=== PATIENT | male | born 1985 | race Caucasian/White ===

== ENCOUNTER 2019-02-22 12:40 | Emergency (ER) | payer SELFPAY ==
[2019-02-22] MEDS ORDERED: NA CHLORIDE 0.9% 1,000 ML ONE (13:08)
[2019-02-22] MEDS ORDERED: ONDANSETRON 4 MG/2 ML VIAL ONE (13:08)
[2019-02-22 13:16] LABS: Absolute Lymphocytes (CBC) 1.2 K/uL (0.7-4.9); Absolute Monocytes 0.3 K/uL (0.1-1.3); Absolute Neutrophil 7.6 K/uL (1.8-8.0); Basophils % 0.4 % (0-1.3); Eosinophils % 0.5 % (0-4.4); Hematocrit 45.1 % (39.6-49.0); MPV 8.3 fL (7.6-11.3); Monocytes % 3.6 % (3.3-12.3); RBC Red Blood Cell Count 5.05 M/uL (4.33-5.43)
[2019-02-22 13:38] LABS: ALT/SGPT 31 U/L (12-78); AST/SGOT 17 U/L (15-37); Albumin 4.2 g/dL (3.4-5.0); Alkaline Phosphatase 77 U/L (45-117); BUN Blood Urea Nitrogen 17 mg/dL (7-18); Bicarbonate 25 mmol/L (21-32); Bilirubin Direct 0.1 mg/dL (0-0.2); Bilirubin Total 0.4 mg/dL (0.2-1.0); Glucose Level 145 mg/dL (74-106); Lipase 63 U/L (73-393); Protein, Total 7.7 g/dL (6.4-8.2); Sodium Level 141 mmol/L (136-145)
--- NOTE | 2019-02-22 15:04 | EDPHYS ---
Physician Documentation [facility] Name: Bonifacio Li Age: 33 yrs Sex: Male : 1985 Arrival Date: 02/22/2019 Time: 12:42 Bed 5 Private MD: ED Physician Neil Vega HPI: 02/22 12:54 This 33 yrs old Male presents to ER via Ambulatory with complaints of rn Abdominal Pain, Vomiting. 12:54 The patient presents to the emergency department with nausea, vomiting, diarrhea. rn 12:55 Onset: The symptoms/episode began/occurred this morning. Possible causes: unknown. The rn symptoms are aggravated by nothing. The symptoms are alleviated by nothing. Severity of symptoms: At their worst the symptoms were moderate in the emergency department the symptoms are unchanged. The patient has not experienced similar symptoms in the past. The patient has not recently seen a physician. REports nausea/vomiting/diarrhea, began this morning, no fever, + chills, no blood in emesis, reports not able to tolerate any food and is feeling dehydrated. No focal abd pain. . Historical: - Allergies: 12:48 No Known Allergies; ss - Home Meds: 12:48 None [Active]; ss - PMHx: 12:48 None; ss - PSHx: 12:48 None; ss - Immunization history:: Adult Immunizations up to date. - Social history:: Smoking status: Patient uses tobacco products, chewing tobacco. - Ebola Screening: : Patient denies exposure to infectious person Patient denies travel to an Ebola-affected area in the 21 days before illness onset. - Family history:: not pertinent. - Hospitalizations: : No recent hospitalization is reported. ROS: 12:55 Constitutional: Negative for fever, chills, and weight loss, Eyes: Negative for injury, rn pain, redness, and discharge, Neck: Negative for injury, pain, and swelling, Cardiovascular: Negative for chest pain, palpitations, and edema, Respiratory: Negative for shortness of breath, cough, wheezing, and pleuritic chest pain, Abdomen/GI: + nausea/vomiting MS/Extremity: Negative for injury and deformity, Skin: Negative for injury, rash, and discoloration, Neuro: Negative for headache, numbness, tingling, and seizure. Exam: 12:55 Constitutional: This is a well developed, well nourished patient who is awake, alert, rn wretching Head/Face: Normocephalic, atraumatic. Eyes: Pupils equal round and reactive to light, extra-ocular motions intact. Lids and lashes normal. Conjunctiva and sclera are non-icteric and not injected. Cornea within normal limits. Periorbital areas with no swelling, redness, or edema. ENT: dry MM Respiratory: No increased work of breathing, no retractions or nasal flaring. Abdomen/GI: soft, non-tender Skin: Warm, dry MS/ Extremity: Pulses equal, no cyanosis. Neurovascular intact. Full, normal range of motion. Equal circumference. Neuro: Awake and alert, GCS 15, oriented to person, place, time, and situation. Cranial nerves II-XII grossly intact. Motor strength 5/5 in all extremities. Sensory grossly intact. Cerebellar exam normal. Normal gait. Vital Signs: 12:48 BP 153 / 92; Pulse 92; Resp 18; Temp 96.5(TE); Pulse Ox 98% on R/A; Weight 102.06 kg; ss Height 6 ft. 0 in. (182.88 cm); Pain 3/10; 14:01 BP 124 / 73 RA Supine (auto/reg); Pulse 68 MON; Resp 14 S; Pulse Ox 99% on R/A; ds4 12:48 Body Mass Index 30.52 (102.06 kg, 182.88 cm) ss MDM: 12:49 Patient medically screened. rn 15:01 Differential diagnosis: Nonspecific abd pain, viral gastroenteritis, gastroenteritis. rn Data reviewed: vital signs, nurses notes, lab test result(s), and as a result, I will discharge patient. Counseling: I had a detailed discussion with the patient and/or guardian regarding: the historical points, exam findings, and any diagnostic results supporting the discharge/admit diagnosis, lab results, the need for outpatient follow up, to return to the emergency department if symptoms worsen or persist or if there are any questions or concerns that arise at home. Response to treatment: the patient's symptoms have markedly improved after treatment, patient is well hydrated. and as a result, I will discharge patient. Special discussion: I discussed with the patient/guardian in detail that at this point there is no indication for admission to the hospital. It is understood, however, that if the symptoms persist or worsen the patient needs to return immediately for re-evaluation. ED course: Reports nausea is gone, mild abd cramping but no pain, asking for ice and wants to go home. Will dc home with zofran prn and return precautions. . 02/22 12:54 Order name: Basic Metabolic Panel; Complete Time: 13:52 rn 02/22 12:54 Order name: CBC with Diff; Complete Time: 13:52 rn 02/22 12:54 Order name: Hepatic Function; Complete Time: 13:52 rn 02/22 12:54 Order name: Lipase; Complete Time: 13:52 rn 02/22 12:54 Order name: Flu; Complete Time: 13:52 rn 02/22 12:54 Order name: IV Saline Lock; Complete Time: 13:12 rn 02/22 12:54 Order name: Labs collected and sent; Complete Time: 13:12 rn Administered Medications: 13:11 Drug: NS 0.9% 1000 ml Route: IV; Rate: 1000 ml; Site: left wrist; sv 15:00 Follow up: IV Status: Completed infusion iw 13:11 Drug: Zofran 4 mg Route: IVP; Site: left wrist; sv 15:28 Follow up: Response: No adverse reaction; Nausea is decreased iw Disposition: 02/22/19 15:03 Discharged to Home. Impression: Vomiting, Diarrhea, unspecified, Viral Gastroenteritis. - Condition is Stable. - Discharge Instructions: Diarrhea, Adult, Nausea and Vomiting, Adult, Viral Gastroenteritis, Adult. - Prescriptions for Zofran ODT 4 mg Oral tablet,disintegrating - place 1 tablet by TRANSLINGUAL route every 8 hours As needed; 20 tablet. - Work release form, Medication Reconciliation Form, Thank You Letter, Antibiotic Education, Prescription Opioid Use form. - Follow up: Private Physician; When: As needed; Reason: Recheck today's complaints, Re-evaluation by your physician. - Problem is new. - Symptoms have improved. Signatures: Dispatcher [employer] Leny Guevara RN RN sv Williams, Irene, RN RN iw Nieto, Roman, MD MD rn Smirch, Shelby, RN RN ss Corrections: (The following items were deleted from the chart) 15:28 15:03 02/22/2019 15:03 Discharged to Home. Impression: Vomiting; Diarrhea, unspecified; iw Viral Gastroenteritis. Condition is Stable. Forms are Medication Reconciliation Form, Thank You Letter, Antibiotic Education, Prescription Opioid Use. Follow up: Private Physician; When: As needed; Reason: Recheck today's complaints, Re-evaluation by your physician. Problem is new. Symptoms have improved. rn
--- NOTE | 2019-02-22 15:04 | ER ---
Nurse's Notes [facility] Name: Bonifacio Li Age: 33 yrs Sex: Male : 1985 Arrival Date: 02/22/2019 Time: 12:42 Bed 5 Private MD: Diagnosis: Vomiting;Diarrhea, unspecified;Viral Gastroenteritis Presentation: 02/22 12:47 Presenting complaint: Patient states: N/V that began this morning with mild abd ss discomfort. Transition of care: patient was not received from another setting of care. Onset of symptoms was February 22, 2019. Risk Assessment: Do you want to hurt yourself or someone else? Patient reports no desire to harm self or others. Initial Sepsis Screen: Does the patient meet any 2 criteria? No. Patient's initial sepsis screen is negative. Does the patient have a suspected source of infection? No. Patient's initial sepsis screen is negative. Care prior to arrival: None. 12:47 Method Of Arrival: Ambulatory ss 12:47 Acuity: [place] 3 ss Historical: - Allergies: 12:48 No Known Allergies; ss - Home Meds: 12:48 None [Active]; ss - PMHx: 12:48 None; ss - PSHx: 12:48 None; ss - Immunization history:: Adult Immunizations up to date. - Social history:: Smoking status: Patient uses tobacco products, chewing tobacco. - Ebola Screening: : Patient denies exposure to infectious person Patient denies travel to an Ebola-affected area in the 21 days before illness onset. - Family history:: not pertinent. - Hospitalizations: : No recent hospitalization is reported. Screenin:52 Abuse screen: Denies threats or abuse. Denies injuries from another. Nutritional sv screening: No deficits noted. Tuberculosis screening: No symptoms or risk factors identified. Fall Risk None identified. Assessment: 12:53 General: Appears in no apparent distress. uncomfortable, unkempt, well developed, sv Behavior is calm, cooperative, appropriate for age. Pain: Complains of pain in abdomen Pain currently is 3 out of 10 on a pain scale. Quality of pain is described as crampy, Is intermittent. Neuro: Level of Consciousness is awake, alert, obeys commands, Oriented to person, place, time, situation, Moves all extremities. Full function Gait is steady, Speech is normal. Respiratory: Respiratory effort is even, unlabored, Respiratory pattern is regular, symmetrical. GI: Abdomen is round Abd is soft and non tender X 4 quads. Reports diarrhea, nausea, vomiting. Derm: Skin is pale. 15:28 GI: Bowel sounds present X 4 quads. iw Vital Signs: 12:48 BP 153 / 92; Pulse 92; Resp 18; Temp 96.5(TE); Pulse Ox 98% on R/A; Weight 102.06 kg; ss Height 6 ft. 0 in. (182.88 cm); Pain 3/10; 14:01 BP 124 / 73 RA Supine (auto/reg); Pulse 68 MON; Resp 14 S; Pulse Ox 99% on R/A; ds4 12:48 Body Mass Index 30.52 (102.06 kg, 182.88 cm) ED Course: 12:42 Patient arrived in ED. mr 12:48 Triage completed. ss 12:48 Arm band placed on right wrist. ss 12:49 Neil Vega MD is Attending Physician. rn 12:52 Leny Hyman RN is Primary Nurse. sv 12:52 Patient has correct armband on for positive identification. Bed in low position. Call sv light in reach. Door closed. 13:05 Initial lab(s) drawn, by me, sent to lab. Flu and/or RSV swab sent to lab. Inserted sv saline lock: 20 gauge in left wrist, using aseptic technique. Blood collected. Flushed left with 5 ml normal saline wrist. 15:28 No provider procedures requiring assistance completed. IV discontinued, intact, iw bleeding controlled, No redness/swelling at site. Pressure dressing applied. Administered Medications: 13:11 Drug: NS 0.9% 1000 ml Route: IV; Rate: 1000 ml; Site: left wrist; sv 15:00 Follow up: IV Status: Completed infusion iw 13:11 Drug: Zofran 4 mg Route: IVP; Site: left wrist; sv 15:28 Follow up: Response: No adverse reaction; Nausea is decreased iw Outcome: 15:03 Discharge ordered by MD. rn 15:28 Discharged to home ambulatory, with family. iw 15:28 Condition: good 15:28 Discharge instructions given to patient, family, Instructed on discharge instructions, follow up and referral plans. medication usage, Demonstrated understanding of instructions, follow-up care, medications, Prescriptions given X 1. 15:28 Patient left the ED. iw Signatures: Leny Hyman, DAVID HERNANDEZ Moses, [facility] mr Kait Lara, Neil Bustillo RN, MD MD rn Smirch, Shelby, RN RN ss Swanson, Donovan ds4
[2019-02-22 15:35] VITALS: TEMP 96.5
[2019-02-22 15:36] VITALS: BP 124/73; O2SAT 99
== END 2019-02-22 15:28 | disposition home or self-care (01) ==
LOC: ER 12:40
DX: A08.4 Viral intestinal infection, unspecified (principal); R19.7 Diarrhea, unspecified; Z72.0 Tobacco use
CPT/HCPCS: 36415; 80048; 80076; 83690; 85025; 87804; 96361; 96374; 99284; J2405; J7030

== ENCOUNTER 2021-01-27 14:17 | Emergency (ER) | payer OTHER, SELFPAY ==
--- NOTE | 2021-01-27 16:45 | EDPHYS ---
Physician Documentation [facility] Name: Bonifacio Li Age: 35 yrs Sex: Male : 1985 Arrival Date: 01/27/2021 Time: 14:22 Bed 6 Private MD: ED Physician Naren Humphries HPI: 01/27 15:58 This 35 yrs old Male presents to ER via Ambulatory with complaints of Dog jmm Bite. 15:58 The patient was bitten on the face and left hand. Onset: The symptoms/episode jmm began/occurred acutely, just prior to arrival. This is a 35 year old male with no chronic medical conditions that presents to the ED with complaints of multiple bites secondary to breaking up a dog fight. Patient states he is UTD on tetanus immunizations. . Historical: - Allergies: 14:32 No Known Allergies; ll1 - PMHx: 14:32 None; ll1 - PSHx: 14:32 ear sx, arm sx; ll1 - Immunization history:: Last tetanus immunization: up to date Flu vaccine is not up to date. - Social history:: Smoking status: Patient reports use of chewing tobacco. Patient denies any tobacco usage or history of. ROS: 15:58 Constitutional: Negative for fever, chills, and weight loss, Cardiovascular: Negative jmm for chest pain, palpitations, and edema, Respiratory: Negative for shortness of breath, cough, wheezing, and pleuritic chest pain. 15:58 Skin: Positive for laceration(s). 15:58 All other systems are negative. Exam: 15:58 Constitutional: This is a well developed, well nourished patient who is awake, alert, jmm and in no acute distress. Head/Face: atraumatic. Eyes: EOMI, no conjunctival erythema appreciated ENT: Moist Mucus Membranes Neck: Trachea midline, Supple Chest/axilla: Normal chest wall appearance and motion. Cardiovascular: Regular rate and rhythm. No edema appreciated Respiratory: Normal respirations, no respiratory distress appreciated Abdomen/GI: Non distended, soft Back: Normal ROM 15:58 Skin: 2 cm superficial laceration noted to the forehead, small lacerations noted to the 3rd finger. . 15:58 Neuro: Orientation: is normal, Mentation: is normal, Memory: is normal. 15:58 Psych: Behavior/mood is pleasant, cooperative. Vital Signs: 14:29 BP 142 / 88; Pulse 89; Resp 17; Temp 98.8; Pulse Ox 98% ; Weight 86.18 kg; Height 6 ft. ll1 (182.88 cm); Pain 0/10; 14:29 Body Mass Index 25.77 (86.18 kg, 182.88 cm) ll1 MDM: 16:07 Data reviewed: vital signs, nurses notes. [facility] 16:11 Patient medically screened. [facility] 16:43 Counseling: I had a detailed discussion with the patient and/or guardian regarding: the [facility] historical points, exam findings, and any diagnostic results supporting the discharge/admit diagnosis, the need for outpatient follow up, to return to the emergency department if symptoms worsen or persist or if there are any questions or concerns that arise at home. 01/27 16:08 Order name: Wound Care: cleans wounds with hibiclenz; Complete Time: 16:52 [facility] Administered Medications: No medications were administered Disposition: 17:45 Co-signature as Attending Physician, Naren Humphries MD I agree with the assessment and [facility] plan of care. Disposition: 01/27/21 16:44 Discharged to Home. Impression: Dog Bite. - Condition is Stable. - Discharge Instructions: Animal Bite. - Prescriptions for Augmentin 875- 125 mg Oral Tablet - take 1 tablet by ORAL route every 12 hours for 10 days; 20 tablet. - Medication Reconciliation Form, Thank You Letter, Antibiotic Education, Prescription Opioid Use form. - Follow up: Private Physician; When: 2 - 3 days; Reason: Recheck today's complaints, Continuance of care, Re-evaluation by your physician. Signatures: Dave Diaz PA PA jmm Smirch, Shelby, RN RN Naren Gomez MD MD tw4 Doc Bonilla RN RN ll1 Corrections: (The following items were deleted from the chart) 17:02 16:44 01/27/2021 16:44 Discharged to Home. Impression: Dog Bite. Condition is Stable. ss Forms are Medication Reconciliation Form, Thank You Letter, Antibiotic Education, Prescription Opioid Use. Follow up: Private Physician; When: 2 - 3 days; Reason: Recheck today's complaints, Continuance of care, Re-evaluation by your physician. radha
--- NOTE | 2021-01-27 16:45 | ER ---
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 Laceration to ll1 R face area (above R eyebrow) <3 cm laceration. Puncture wounds to L hand 2nd and 4th digits. 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 Coronavirus screen: Client denies travel out of the [place] in the last 14 days. At this time, the client does not indicate any symptoms associated with coronavirus-19. Ebola Screen: Patient denies travel to an Ebola-affected area in the 21 days before illness onset. Initial Sepsis Screen: Does the patient meet any 2 criteria? No. Patient's initial sepsis screen is negative. Does the patient have a suspected source of infection? Yes: Skin breakdown/wound. Risk Assessment: Do you want to hurt yourself or someone else? Patient reports no desire to harm self or others. Onset of symptoms was January 27, 2021. 14:29 Method Of Arrival: Ambulatory 1 14:29 Acuity: [place] 4 ll1 Historical: - Allergies: 14:32 No Known Allergies; ll1 - PMHx: 14:32 None; ll1 - PSHx: 14:32 ear sx, arm sx; ll1 - Immunization history:: Last tetanus immunization: up to date Flu vaccine is not up to date. - Social history:: Smoking status: Patient reports use of chewing tobacco. Patient denies any tobacco usage or history of. Screenin:50 Abuse screen: Denies threats or abuse. Denies injuries from another. Nutritional ph screening: No deficits noted. Tuberculosis screening: No symptoms or risk factors identified. Assessment: 16:30 General: Appears in no apparent distress. comfortable, Behavior is calm, cooperative, ph appropriate for age. Pain: Denies pain. Neuro: Level of Consciousness is awake, alert, obeys commands, Oriented to person, place, time, situation. Derm: Skin is healthy with good turgor, Skin is pink, warm \T\ dry. Musculoskeletal: Circulation, motion, and sensation intact. Range of motion: intact in all extremities. Injury Description: Laceration sustained to right side of forehead is superficial, 0.5 to 2.5 cm long, not bleeding. Injury Description: Laceration sustained to left hand, second and fourth digits is superficial, not bleeding. Vital Signs: 14:29 BP 142 / 88; Pulse 89; Resp 17; Temp 98.8; Pulse Ox 98% ; Weight 86.18 kg; Height 6 ft. ll1 (182.88 cm); Pain 0/10; 14:29 Body Mass Index 25.77 (86.18 kg, 182.88 cm) ll1 ED Course: 14:22 Patient arrived in ED. mr 14:31 Triage completed. ll1 14:32 Arm band placed on. ll1 15:13 Dave Diaz PA is PHCP. radha 15:13 Naren Humphries MD is Attending Physician. mani 15:49 Lisa Baker, RN is Primary Nurse. ph 15:50 Patient has correct armband on for positive identification. Placed in gown. Bed in low ph position. Call light in reach. Pulse ox on. NIBP on. Door closed. Noise minimized. Warm blanket given. 16:45 Wound care: to laceration located on left hand and right side of forehead was cleaned ph with Hibiclens, Patient tolerated well. 16:52 No provider procedures requiring assistance completed. Patient did not have IV access ss during this emergency room visit. Administered Medications: No medications were administered Outcome: 16:44 Discharge ordered by . [facility] 16:52 Discharged to home ambulatory. 16:52 Condition: good 16:52 Discharge instructions given to patient, over the phone. Pt walked out of ED prior to receiving discharge instructions 17:02 Patient left the ED. ss Signatures: Dave Diaz PA PA jmm Shahla Moses Gertrude Kaplan RN RN ss Lsia Baker RN RN Doc Bonilla RN RN ll1 Corrections: (The following items were deleted from the chart) 19:16 16:30 Injury Description: Laceration ph ph
[2021-01-27 17:07] VITALS: BP 142/88; TEMP 98.8; O2SAT 98
== END 2021-01-27 17:02 | disposition home or self-care (01) ==
LOC: ER 14:17
DX: S00.87XA Other superficial bite of other part of head, initial encounter (principal); S60.473A Other superficial bite of left middle finger, initial encounter; W54.0XXA Bitten by dog, initial encounter; Y93.89 Activity, other specified; Y92.9 Unspecified place or not applicable; F17.220 Nicotine dependence, chewing tobacco, uncomplicated
CPT/HCPCS: 99283

== ENCOUNTER 2022-10-17 10:38 | Emergency (ER) | payer SELFPAY ==
[2022-10-17 11:30] LABS: MCV 92.3 fL (80-100); MPV 7.6 fL (7.6-11.3); RBC Red Blood Cell Count 4.66 M/uL (4.33-5.43)
[2022-10-17 11:43] LABS: Urine Blood Negative (Negative); Urine Glucose Negative (Negative); Urine Protein Negative (Negative); Urine Specific Gravity >=1.030 (1.005-1.030); Urine pH 5.5 (5.0-7.0)
[2022-10-17 11:53] LABS: Potassium 3.9 mmol/L (3.5-5.1); Troponin High Sensitivity 6.5 pg/mL (<58.9)
[2022-10-17 11:57] LABS: Barbiturates NEGATIVE (NEGATIVE); Benzodiazepines NEGATIVE (NEGATIVE); Cocaine NEGATIVE (NEGATIVE); METHAMPHETAM NEGATIVE (NEGATIVE); Methadone NEGATIVE (NEGATIVE); Opiates NEGATIVE (NEGATIVE); Phencyclidine NEGATIVE (NEGATIVE); THC Cannibis POSITIVE (NEGATIVE); Urine Mucus Slight /HPF (None Seen); Urine RBC <5 /HPF (None Seen)
--- NOTE | 2022-10-17 12:30 | RAD REPORT ---
EXAM DESCRIPTION: Emily Single View10/17/2022 12:21 pm CLINICAL HISTORY: Chest pain COMPARISON: 2016 FINDINGS: The lungs appear clear of acute infiltrate. The heart is normal size IMPRESSION: No acute abnormalities displayed
[2022-10-17 12:34] LABS: ALT/SGPT 25 U/L (12-78); AST/SGOT 17 U/L (15-37); Alkaline Phosphatase 58 U/L (45-117); Bilirubin Total 0.4 mg/dL (0.2-1.0); Creatine Phosphokinase 147 U/L (39-308)
[2022-10-17 12:35] LABS: Bilirubin Direct < 0.1 mg/dL (0-0.2)
--- NOTE | 2022-10-17 15:48 | ER ---
Nurse's Notes [facility] Name: Bonifacio Li Age: 37 yrs Sex: Male : 1985 Arrival Date: 10/17/2022 Time: 10:38 Bed 28 Private MD: Diagnosis: Chest pain, unspecified Presentation: 10/17 10:50 Chief complaint: Patient states: Woke up this morning with intermittent chest pain. ld1 Denies injury. Never had chest pain before. Coronavirus screen: At this time, the client does not indicate any symptoms associated with coronavirus-19. Ebola Screen: No symptoms or risks identified at this time. Initial Sepsis Screen: Does the patient meet any 2 criteria? No. Patient's initial sepsis screen is negative. Does the patient have a suspected source of infection? No. Patient's initial sepsis screen is negative. Risk Assessment: Do you want to hurt yourself or someone else? Patient reports no desire to harm self or others. Onset of symptoms was October 17, 2022 at 10:52. 10:50 Method Of Arrival: Ambulatory ld1 10:50 Acuity: [place] 3 ld1 Triage Assessment: 10:50 General: Appears in no apparent distress. comfortable, Behavior is calm, cooperative, ld1 appropriate for age. Pain: Complains of pain in chest Pain does not radiate. Pain currently is 6 out of 10 on a pain scale. Quality of pain is described as sharp, shooting, throbbing, Pain began suddenly, Is intermittent. EENT: No signs and/or symptoms were reported regarding the EENT system. Neuro: Level of Consciousness is awake, alert, obeys commands, Oriented to person, place, time, situation. Cardiovascular: Capillary refill < 3 seconds Patient's skin is warm and dry. Rhythm is sinus rhythm. Respiratory: Airway is patent Respiratory effort is even, unlabored. GI: Abdomen is flat, non-distended. : No signs and/or symptoms were reported regarding the genitourinary system. Derm: No signs and/or symptoms reported regarding the dermatologic system. Musculoskeletal: No signs and/or symptoms reported regarding the musculoskeletal system. Historical: - Allergies: 10:50 No Known Allergies; ld1 - Home Meds: 10:50 None [Active]; ld1 - PMHx: 10:50 None; ld1 - PSHx: 10:50 None; ld1 - Immunization history:: Adult Immunizations up to date, Client reports having NOT received the Covid vaccine. - Social history:: Smoking status: Patient denies any tobacco usage or history of. Patient/guardian denies using alcohol. Screenin:45 Abuse screen: Denies threats or abuse. Denies injuries from another. Nutritional eh3 screening: No deficits noted. Tuberculosis screening: No symptoms or risk factors identified. Fall Risk None identified. Assessment: 12:45 General: Appears in no apparent distress. comfortable, Behavior is calm, cooperative, eh3 appropriate for age. Pain: Complains of pain in mid-sternal area Pain radiates to chest Pain currently is 5 out of 10 on a pain scale. Quality of pain is described as sharp, Pain began 4 hours ago. Is intermittent, Alleviated by nothing. Neuro: Level of Consciousness is awake, alert, obeys commands, Oriented to person, place, time, situation. Cardiovascular: Rhythm is sinus rhythm. Cardiovascular: Capillary refill < 3 seconds Patient's skin is warm and dry. Respiratory: Airway is patent Respiratory effort is even, labored, Respiratory pattern is regular, symmetrical. GI: No signs and/or symptoms were reported involving the gastrointestinal system. GI: No signs and/or symptoms were reported involving the gastrointestinal system. Abdomen is round non-distended. : No signs and/or symptoms were reported regarding the genitourinary system. EENT: No signs and/or symptoms were reported regarding the EENT system. Derm: No signs and/or symptoms reported regarding the dermatologic system. Musculoskeletal: No signs and/or symptoms reported regarding the musculoskeletal system. Circulation, motion, and sensation intact. Range of motion: intact in all extremities. 13:45 Reassessment: Patient and/or family updated on plan of care and expected duration. Pain eh3 level reassessed. Patient is alert, oriented x 3, equal unlabored respirations, skin warm/dry/pink. Vital Signs: 10:50 BP 129 / 76; Pulse 77; Resp 18; Temp 98.1(TE); Pulse Ox 98% on R/A; Weight 86.18 kg; ld1 Height 5 ft. 11 in. (180.34 cm); Pain 6/10; 12:45 BP 134 / 63; Pulse 77; Resp 20; Pulse Ox 98% on R/A; eh3 13:45 BP 121 / 72; Pulse 60; Resp 17; Pulse Ox 95% on R/A; eh3 10:50 Body Mass Index 26.50 (86.18 kg, 180.34 cm) ld1 ED Course: 10:38 Patient arrived in ED. as 10:48 Mckinley Michele PA is PHCP. cp 10:48 Mckinley Perry MD is Attending Physician. cp 10:50 Arm band placed on right wrist. ld1 10:52 Triage completed. ld1 11:19 Kait Lara, RN is Primary Nurse. iw 11:19 Inserted saline lock: 20 gauge in right wrist, using aseptic technique. Blood collected.iw 11:44 UDS Sent. ld1 12:23 XRAY Chest (1 view) In Process Unspecified. EDMS 12:45 Patient has correct armband on for positive identification. Placed in gown. Bed in low eh3 position. Call light in reach. Side rails up X2. Client placed on continuous cardiac and pulse oximetry monitoring. NIBP monitoring applied. Door closed. Noise minimized. Lights dimmed. Warm blanket given. Pillow given. 16:13 No provider procedures requiring assistance completed. Patient maintains SpO2 eh3 saturation greater than 95% on room air. Administered Medications: 11:26 Drug: Ketorolac 15 mg Route: IVP; Site: left wrist; ld1 12:56 Follow up: Response: Pain is decreased eh3 11:26 Drug: Pepcid (famotidine) 20 mg Route: IVP; Site: left wrist; ld1 12:57 Follow up: Response: Pain is decreased eh3 Medication: 16:13 VIS not applicable for this client. eh3 Outcome: 15:47 Discharge ordered by . cp 16:16 Discharged to home ambulatory. eh3 16:16 Condition: stable 16:16 Discharge instructions given to patient, by ANTHONY Hollis. Pt left before signing discharge paperwork. Charge nurse notified 16:18 Patient left the ED. eh3 Signatures: Dispatcher [employer] Jeannine Sanchez as Kait Lara, RN RN iw Mckinley iMchele PA PA Savannah Delgado RN RN ld1 Amanda Baker RN RN eh3 Corrections: (The following items were deleted from the chart) 14:29 14:25 General: Appears in no apparent distress. comfortable, Behavior is calm, eh3 cooperative, appropriate for age, 3 14:25 Pain: Complains of pain in mid-sternal area Pain radiates to chest Pain currently eh3 is 5 out of 10 on a pain scale. Quality of pain is described as sharp, Pain began 4 hours ago. Is intermittent, Alleviated by nothing. 3 : 14:25 Neuro: Level of Consciousness is awake, alert, obeys commands, Oriented to 3 person, place, time, situation, [facility] : 14:25 Cardiovascular: Capillary refill < 3 seconds Patient's skin is warm and dry. 3 3 : 14:25 Respiratory: Airway is patent Respiratory effort is even, labored, Respiratory [facility] pattern is regular, symmetrical, [facility] : 14:25 Cardiovascular: Rhythm is sinus rhythm [place] [id number] 14:25 GI: No signs and/or symptoms were reported involving the gastrointestinal system. 3 Abdomen is round non-distended, [facility] 14:25 GI: No signs and/or symptoms were reported involving the gastrointestinal system. 3 3 14:25 : [place] [id number] : 14:25 EENT: No signs and/or symptoms were reported regarding the EENT system. 3 3 : 14:25 : No signs and/or symptoms were reported regarding the genitourinary system. 33 : 14:25 Derm: No signs and/or symptoms reported regarding the dermatologic system. 3 3 : 14:25 Musculoskeletal: No signs and/or symptoms reported regarding the musculoskeletal [facility] system. Circulation, motion, and sensation intact. Range of motion: intact in all extremities, [facility]
--- NOTE | 2022-10-17 15:48 | EDPHYS ---
Physician Documentation [facility] Name: Bonifacio Li Age: 37 yrs Sex: Male : 1985 Arrival Date: 10/17/2022 Time: 10:38 Bed 28 Private MD: ED Physician Mckinley Perry HPI: 10/17 10:55 This 37 yrs old Male presents to ER via Ambulatory with complaints of Chest Pain. cp 10:55 The patient or guardian reports chest pain that is located primarily in the anterior cp chest wall. 10:55 The pain does not radiate. cp 10:55 The chest pain is described as sharp. cp 10:55 Associated signs and symptoms: Pertinent negatives: abdominal pain, cough, diaphoresis, cp dizziness, lower extremity pain, lower extremity swelling, shortness of breath, syncope, vomiting. Duration: The patient or guardian reports multiple episodes, that are intermittent. Historical: - Allergies: 10:50 No Known Allergies; ld1 - Home Meds: 10:50 None [Active]; ld1 - PMHx: 10:50 None; ld1 - PSHx: 10:50 None; ld1 - Immunization history:: Adult Immunizations up to date, Client reports having NOT received the Covid vaccine. - Social history:: Smoking status: Patient denies any tobacco usage or history of. Patient/guardian denies using alcohol. ROS: 11:00 Constitutional: Negative for body aches, chills, fever, poor PO intake. cp 11:00 Eyes: Negative for injury, pain, redness, and discharge. cp 11:00 Cardiovascular: Positive for chest pain, Negative for edema, palpitations. 11:00 Respiratory: Negative for cough, shortness of breath, wheezing. 11:00 Abdomen/GI: Negative for abdominal pain, nausea, vomiting, and diarrhea. 11:00 Back: Negative for pain at rest, pain with movement. cp 11:00 Neuro: Negative for altered mental status, dizziness, headache, numbness, weakness. 11:00 All other systems are negative. Exam: 11:05 ECG was reviewed by the Attending Physician. cp 11:08 Constitutional: The patient appears in no acute distress, alert, awake, cp non-diaphoretic, non-toxic, well developed, well nourished. 11:08 Head/Face: Normocephalic, atraumatic. cp 11:08 Eyes: Periorbital structures: appear normal, Conjunctiva: normal, no exudate, no injection, Sclera: no appreciated abnormality, Lids and lashes: appear normal, bilaterally. 11:08 ENT: External ear(s): are unremarkable, Nose: is normal, Mouth: Lips: moist, Oral mucosa: pink and intact, moist, Posterior pharynx: Airway: no evidence of obstruction, patent, swelling, is not appreciated, erythema, is not appreciated, exudate, is not appreciated. 11:08 Neck: ROM/movement: is normal, is supple, without pain, no range of motions limitations. 11:08 Chest/axilla: Inspection: normal, Palpation: is normal, no crepitus, no tenderness. 11:08 Cardiovascular: Rate: normal, Rhythm: regular, Edema: is not appreciated, JVD: is not appreciated. 11:08 Respiratory: the patient does not display signs of respiratory distress, Respirations: normal, no use of accessory muscles, no retractions, labored breathing, is not present, Breath sounds: are clear throughout, no decreased breath sounds, no stridor, no wheezing. 11:08 Abdomen/GI: Exam negative for discomfort, distension, guarding, Inspection: abdomen appears normal. 11:08 Back: pain, is absent, ROM is normal. 11:08 Neuro: Orientation: to person, place \T\ time. Mentation: is normal, Motor: moves all fours, strength is normal, Sensation: is normal. Vital Signs: 10:50 BP 129 / 76; Pulse 77; Resp 18; Temp 98.1(TE); Pulse Ox 98% on R/A; Weight 86.18 kg; ld1 Height 5 ft. 11 in. (180.34 cm); Pain 6/10; 12:45 BP 134 / 63; Pulse 77; Resp 20; Pulse Ox 98% on R/A; eh3 13:45 BP 121 / 72; Pulse 60; Resp 17; Pulse Ox 95% on R/A; eh3 10:50 Body Mass Index 26.50 (86.18 kg, 180.34 cm) ld1 MDM: 10:50 Patient medically screened. [facility] 14:30 Data reviewed: vital signs, nurses notes, lab test result(s), EKG, radiologic studies, cp plain films. 14:30 Test interpretation: by ED physician or midlevel provider: ECG, plain radiologic cp studies. ED course: Patient left ED prior to discussion of results and repeat EKG and repeat troponin. Patient may return to ED at any time for reevaluation. 15:11 ED course: left msg on voicemail to discuss results. 10/17 10:53 Order name: Basic Metabolic Panel; Complete Time: 12:30 ld1 10/17 12:30 Interpretation: Normal except: CL 110; BUN 19. 10/17 10:53 Order name: CBC with Diff; Complete Time: 12:30 ld1 10/17 12:30 Interpretation: Normal except: EOSINOPHIL % 4.8. 10/17 10:53 Order name: Troponin HS; Complete Time: 12:30 ld1 10/17 12:31 Interpretation: Reviewed. 10/17 11:01 Order name: UDS; Complete Time: 12:30 10/17 12:30 Interpretation: Reviewed. 10/17 11:01 Order name: Urine Microscopic Only; Complete Time: 12:30 10/17 11:01 Order name: CK; Complete Time: 12:49 10/17 10:53 Order name: XRAY Chest (1 view); Complete Time: 12:49 ld1 10/17 12:49 Interpretation: Report review. 10/17 10:53 Order name: EKG; Complete Time: 10:53 ld1 10/17 10:53 Order name: Cardiac monitoring; Complete Time: 11:44 ld1 10/17 11:01 Order name: LFT's; Complete Time: 12:49 10/17 11:43 Order name: Urine Dipstick-Ancillary; Complete Time: 12:30 EDAK 10/17 10:53 Order name: EKG - Nurse/Tech; Complete Time: 11:01 ld1 10/17 10:53 Order name: IV Saline Lock; Complete Time: 11:22 ld1 10/17 10:53 Order name: Labs collected and sent; Complete Time: 11:22 ld1 10/17 10:53 Order name: O2 Per Protocol; Complete Time: 11:22 ld1 10/17 10:53 Order name: O2 Sat Monitoring; Complete Time: 11:22 ld1 10/17 11:01 Order name: Urine Dipstick-Ancillary (obtain specimen); Complete Time: 11:44 cp 10/17 14:45 Order name: EKG - Nurse/Tech cp EC:05 Rate is 68 beats/min. Rhythm is regular. NM interval is normal. QRS interval is normal. cp QT interval is normal. T waves are Inverted in lead aVR. Interpreted by me. Reviewed by me. Administered Medications: 11:26 Drug: Ketorolac 15 mg Route: IVP; Site: left wrist; ld1 12:56 Follow up: Response: Pain is decreased eh3 11:26 Drug: Pepcid (famotidine) 20 mg Route: IVP; Site: left wrist; ld1 12:57 Follow up: Response: Pain is decreased eh3 Disposition Summary: 10/17/22 15:47 Discharge Ordered Location: Home cp Problem: new cp Symptoms: have improved cp Condition: Stable cp Diagnosis - Chest pain, unspecified cp Followup: cp - With: Private Physician - When: 1 - 2 days - Reason: Recheck today's complaints Discharge Instructions: - Discharge Summary Sheet cp - Nonspecific Chest Pain, Adult cp - Aspirin and Your Heart cp Forms: - Medication Reconciliation Form cp - Thank You Letter cp - Antibiotic Education cp - Prescription Opioid Use cp Addendum: 10/20/2022 07:57 Co-signature as Attending Physician, Mckinley Perry MD I agree with the assessment and c ott plan of care. Signatures: Dispatcher [employer] Mckinley Albarado MD MD cha Page, Corey, PA PA cp Savannah Garcia, RN RN ld1 Amanda Baker RN 3
[2022-10-17 16:22] VITALS: TEMP 98.1
[2022-10-17 16:24] VITALS: BP 121/72; O2SAT 95
--- NOTE | 2022-10-18 07:53 | EKG ---
Test Date: 2022-10-17 Test Time: 11:00:12 Supervisor Detasseling Crew: FRANCIE MEASUREMENT RESULTS: Intervals: Rate: 68 WY: 140 QRSD: 90 QT: 364 QTc: 387 [place]: P: 44 WY: 140 QRS: 32 T: 28 INTERPRETIVE STATEMENTS: Normal sinus rhythm Normal ECG Compared to ECG 03/18/2017 21:40:48 No significant changes Electronically Signed On 10-18-22 07:49:14 MACHINE WORKER by Leonardo Ta
== END 2022-10-17 16:18 | disposition home or self-care (01) ==
LOC: ER 10:38
DX: R07.9 Chest pain, unspecified (principal)
CPT/HCPCS: 36415; 71045; 80048; 80076; 80307; 81003; 81015; 82550; 84484; 85025; 93005; 96374; 96375; 99285